=== PATIENT | female | born 1985 | race Caucasian/White ===

== ENCOUNTER 2021-12-09 13:40 | Emergency (ER) | payer OTHER, SELFPAY ==
[2021-12-09 13:45] VITALS: BP 150/105; PULSE 108; RESP 16; TEMP 36.8; O2SAT 96; BMI 31.3
--- NOTE | 2021-12-09 13:56 | W.ED.FALL ---
HPI - Fall General: Chief Complaint: Fall Stated Complaint: left food injury Time Seen by Provider: 12/09/21 13:49 History of Present Illness: Patient is a 36-year-old female comes to the ED with left foot injury after fall. Patient says yesterday she was walking and rolled her left foot and ankle. She now has pain in left foot and ankle that she rates a 6 out of 10. Pain worsens with any weightbearing. Associated symptoms-after fall: Denies abdominal pain, chest pain, headache(s), hematuria or neck pain Review of Systems Const: Denies: fever(s), chills or fatigue Eyes: Denies: change in vision or eye discomfort ENMT: Denies: throat pain, odynophagia, nasal discharge or nasal congestion Card: Denies: chest pain, palpitations, edema, swelling of feet/ankles, dyspnea on exertion or orthopnea Resp: Denies: dyspnea, productive cough or non-productive cough GI: Denies: abdominal pain, nausea, vomiting, diarrhea, constipation or hematochezia : Denies: flank pain, dysuria or hematuria Musc: Reports: extremity pain (left foot and left ankle), extremity swelling (left foot and ankle) and limited range of motion (Left ankle); Denies: neck pain or back pain Skin/Breast: Denies: rash or new lesions Neuro: Denies: headache(s), numbness in extremities or weakness in extremities PFS ED PFSH: Medical History No pertinent family history Surgical History No pertinent past surgical history Female Reproductive History: Date of last menstrual period: 12/09/21 Physical Exam Const: COMMON NORMALS: patient oriented x3 and alert GENERAL APPEARANCE: cooperative HENMT: COMMON NORMALS: normocephalic HEAD & SCALP: normocephalic MOUTH: Normal oral and palatal mucosa present THROAT: posterior oropharynx normal and uvula midline Neck/C-Spine: COMMON NORMALS: supple GENERAL: Yes normal visual inspection Resp: COMMON NORMALS: normal respiratory effort, No retractions, No use of accessory muscles and clear to auscultation bilaterally AUSCULTATION: clear to auscultation bilaterally Cardio: COMMON NORMALS: regular rate, regular rhythm, S1 normal heart sound present, S2 normal heart sound present, No gallops present (Cardio), No clicks present (Cardio), No murmurs present (Cardio) and Peripheral pulses 2+ throughout RATE: regular rate RHYTHM: regular rhythm HEART SOUNDS: S1 normal heart sound present and S2 normal heart sound present PERIPHERAL PULSES: Peripheral pulses 2+ throughout GI: COMMON NORMALS: Normal to inspection, nondistended, normoactive bowel sounds present, Soft to palpation, non-tender and no masses PALPATION: Yes Soft to palpation : COMMON NORMALS: Yes no CVA tenderness BLADDER/KIDNEY EXAM: Yes no CVA tenderness Back/Pelvis: COMMON NORMALS: no CVA tenderness Extremity: NARRATIVE EXTREMITY EXAM: Left ankle?no visible deformity noted. Swelling around lateral malleolus. Tenderness over anterior aspect of lateral malleolus. Neurovascular intact. Range of motion limited due to pain. LEFT LOWER EXTREMITY: Yes foot & digits Left foot and digits: Yes inspection (No visible deformity and mild swelling noted), Yes palpation (Tenderness over midfoot and lateral midfoot region), Yes ROM (Full) and Yes neurovascular exam (Intact) Neuro: COMMON NORMALS: patient oriented x3 and moves all extremities SENSORIUM/ORIENTATION: Yes alert Skin: GENERAL SKIN EXAM: dry skin Course Vital Signs: Vital signs: Vital Signs Temperature 98.2 F 12/09/21 13:45 Pulse Rate 94 12/09/21 15:49 Respiratory Rate 16 12/09/21 15:49 Blood Pressure 150/105 12/09/21 13:45 Pulse Oximetry 97 12/09/21 15:49 MDM - Fall Medical Decision Making Patient is a 36-year-old female comes to the ED with left foot injury after fall. Patient says yesterday she was walking and rolled her left foot and ankle. vitals stable. Left ankle?no visible deformity noted. Swelling around lateral malleolus. Tenderness over anterior aspect of lateral malleolus. Neurovascular intact. Range of motion limited due to pain. X-ray of left foot and left ankle no acute fracture or findings. Patient was diagnosed with a foot and ankle sprain and was discharged home with some crutches. She was told to follow-up with her PCP in the next week for reevaluation. She was instructed to rest ice and elevate left ankle throughout the day. Return to ED precautions given. Patient understood and agreed with plan. Lab Data Radiology Impressions Ankle X-Ray 12/09/21 14:15 IMPRESSION: 1. Mild soft tissue swelling-no acute fracture. Foot X-Ray 12/09/21 14:15 IMPRESSION: Negative left foot. Discharge Plan Discharge Patient Disposition: Home Clinical Impression: Left ankle sprain Qualifiers: Encounter type: initial encounter Involved ligament of ankle: anterior talofibular ligament Qualified Code(s): S93.492A - Sprain of other ligament of left ankle, initial encounter Foot sprain Qualifiers: Encounter type: initial encounter Laterality: left Qualified Code(s): S93.602A - Unspecified sprain of left foot, initial encounter Condition: Stable Discharge Orders: Discharge ED (Routine); Ordered 12/09/21 Ordered By: Elias Harrington Discharge Diet: Regular Discharge Activity: Increase activity as tolerated and Use walker/crutches as instructed Patient Instructions: Ankle Sprain (ED), Foot Sprain (ED) Activity Restrictions/Additional Instructions: Follow-up with medical provider as directed in the next 5 to 7 days reevaluation. Use crutches and limit weightbearing on left foot for the next 2 to 3 days then advance activity and weightbearing as tolerated. Rest, ice and elevate left foot. Take [id number] Tylenol or ibuprofen for pain. Return to the ER or your medical provider if condition worsens. Please read and understand discharge instructions. Thank you for choosing [facility] for your healthcare needs today. Please realize this is an emergency room and that we are providing you with a medical screening exam and this may not be complete and all inclusive of all the testing and or work up that you may need to determine your ailment or severity of your illness. It is very important that you follow up as instructed or that you return to the Emergency Department should you have concerns or if your condition changes or worsens in any way. Coding Level of Care Code ED Diver Assistant for Chema Fwpricilla Exam Comprehensive
--- NOTE | 2021-12-09 14:15 | XR_ITS ---
WS: [id number] Exam: XR foot LT min 3V* [id number] Date/Time of Exam: 12/09/2021 2:18 PM Reason For Exam: rolled foot injury Findings: The foot was examined in multiple views and reveals no fractures or displacements of bone. No bony a nomalies are noted. The bony elements are in adequate alignment. The joint spaces are smooth and eq uidistant. XR/XR foot LT min 3V* [id number] IMPRESSION: Negative left foot.
--- NOTE | 2021-12-09 14:15 | XR_ITS ---
WS: [id number] Exam: XR ankle LT min 3V* [id number] Date/Time of Exam: 12/09/2021 2:18 PM Reason For Exam: rolled ankle injury No fracture or dislocation. The ankle mortise is intact. Mild soft tissue edema about the ankle. XR/XR ankle LT min 3V* [id number] IMPRESSION: 1. Mild soft tissue swelling-no acute fracture.
[2021-12-09] MEDS: HYDROcodone-acetaminophen 7.5-325 mg Tablet 1 TAB PO (14:39)
[2021-12-09 15:49] VITALS: PULSE 94; RESP 16; O2SAT 97
== END 2021-12-09 15:50 | disposition home or self-care (01) ==
PROVIDERS: Emergency Provider Physician Assistant
DX: S93.492A Sprain of other ligament of left ankle, initial encounter (principal); S93.602A Unspecified sprain of left foot, initial encounter; X50.1XXA Overexertion from prolonged static or awkward postures, initial encounter
CPT/HCPCS: 73610; 73630; 99283; E0114

== ENCOUNTER 2022-05-28 09:38 | Emergency (ER) | payer OTHER, SELFPAY ==
[2022-05-28 09:49] VITALS: BP 172/108; PULSE 113; RESP 14; TEMP 36.8; O2SAT 100; BMI 34.4
--- NOTE | 2022-05-28 09:53 | ECG_ITS ---
[facility] Test Date: 2022-05-28 Pat Name: Lnida Ferris Department: Room: Gender: Female Billet Inspector: : 1985 Requested By: Hermilo Slaughter Order Number: [id number] Umer MD: Chaim Watts M.D. Measurements Intervals Rice Rate: 106 P: 40 NM: 124 QRS: 42 QRSD: 93 T: 34 QT: 342 QTc: 454 Interpretive Statements SINUS TACHYCARDIA No previous ECG available for comparison Electronically Signed On 05-28-2022 10:14:52 FLOOR COVERING CONTRACTOR by Chaim Watts M.D. [id number]
--- NOTE | 2022-05-28 10:01 | W.ED.GENADLT ---
HPI - General Adult General: Chief complaint: General Medical Stated complaint: high BP Time Seen by Provider: 05/28/22 09:52 Source: patient Mode of arrival: ambulatory History of Present Illness: 28-year-old female presents emergency room complaining of not feeling well. She was lightheaded and dizzy today she felt like she was going to pass out checked her blood pressure at home it was markedly elevated. She had been in the shower initially she was previously on antihypertensives but moved to the [place] area and has not reestablished with a doctor her medications ran out. She not having any chest pain. Onset (ago): hour(s) Location: head Severity: mild Relieving factors: none Exacerbating factors: none Associated symptoms: Reports headache(s); Deny chest pain, confusion, cough, diaphoresis, decreased appetite, dyspnea, fevers/chills, malaise, nausea, rash, palpitations, seizures, short of breath, syncope, vomiting or weakness Treatments prior to arrival: none Review of Systems Const: Denies: fever(s), chills, fatigue, malaise or diaphoresis ENMT: Denies: throat pain, ear or mastoid pain, nasal discharge or nasal congestion Card: Denies: chest pain, palpitations or syncope Resp: Denies: dyspnea GI: Denies: abdominal pain, nausea or vomiting : Denies: flank pain, difficulty voiding, dysuria, urinary frequency or urinary urgency Skin/Breast: Denies: rash Neuro: Reports: headache(s); Denies: numbness in extremities, weakness in extremities, sensory changes or confusion [facility] ED PFSH: Medical History (Updated 05/28/22 @ 11:22 by Hermilo Izquierdo DO) Hypertension No pertinent family history Surgical History No pertinent past surgical history Social History (Updated 05/28/22 @ 10:06 by Hermilo Izquierdo DO) Smoking and tobacco status: current every day smoker Female Reproductive History: Date of last menstrual period: 12/09/21 Physical Exam Const: COMMON NORMALS: no acute distress GENERAL APPEARANCE: cooperative and comfortable ORIENTATION/CONSCIOUSNESS: Yes awake, Yes oriented to person, Yes oriented to place and Yes oriented to time HENMT: COMMON NORMALS: normocephalic, atraumatic and hearing grossly normal bilaterally HEAD & SCALP: normocephalic and atraumatic Neck/C-Spine: COMMON NORMALS: no lymphadenopathy, supple and no JVD Resp: COMMON NORMALS: normal respiratory effort, No retractions, No use of accessory muscles and clear to auscultation bilaterally AUSCULTATION: clear to auscultation bilaterally Cardio: COMMON NORMALS: no JVD, regular rate, regular rhythm and No murmurs present (Cardio) RATE: regular rate RHYTHM: regular rhythm GI: COMMON NORMALS: Soft to palpation and No hepatosplenomegaly present AUSCULTATION: Yes normoactive bowel sounds PALPATION: Yes Soft to palpation, No Tenderness to palpation present (GI), No Guarding due to palpation present (GI) and Yes No hepatosplenomegaly present Extremity: COMMON NORMALS: normal to inspection, capillary refill normal, no clubbing, cyanosis or edema, no calf tenderness and no pedal edema Neuro: SENSORIUM/ORIENTATION: Yes oriented to person, Yes oriented to place and Yes oriented to time Skin: COMMON NORMALS: no rashes or lesions noted GENERAL SKIN EXAM: no rashes or lesions noted Course Vital Signs: Vital signs: Vital Signs Temperature 98.3 F 05/28/22 09:49 Pulse Rate 102 H 05/28/22 10:28 Respiratory Rate 14 05/28/22 09:49 Blood Pressure 146/104 05/28/22 11:39 Pulse Oximetry 99 05/28/22 10:28 Oxygen Delivery Me thod 05/28/22 10:28 MDM - General Adult Medical Decision Making Blood pressure improved with medications given. Will discharge home with Toprol-XL 25 p.o. daily and amlodipine 5 p.o. daily. Medical Records I reviewed the patient's medical records. Lab Data I reviewed the patient's lab results. 05/28/22 10:20 05/28/22 10:20 Laboratory Results WBC 9.7 10^3/uL (4.0-10.0) 05/28/22 10:20 RBC 5.36 10^6/uL (4.1-5.3) H 05/28/22 10:20 Hgb 15.8 g/dL (11.5-15.3) H 05/28/22 10:20 Hct 48.6 % (37.0-47.0) H 05/28/22 10:20 MCV 90.7 fl (81-99) 05/28/22 10:20 MCH 29.5 pg (28.0-34.0) 05/28/22 10:20 MCHC 32.5 g/dL (30.0-36.0) 05/28/22 10:20 RDW 13.6 % (12.1-15.1) 05/28/22 10:20 Plt Count 371 10^3/cmm (130-400) 05/28/22 10:20 MPV 9.7 fL (7.4-10.4) 05/28/22 10:20 Neut % (Auto) 61.6 % 05/28/22 10:20 Lymph % (Auto) 30.2 % 05/28/22 10:20 Ralls % (Auto) 6.6 % 05/28/22 10:20 Eos % (Auto) 0.8 % 05/28/22 10:20 Baso % (Auto) 0.5 % 05/28/22 10:20 Neut # (Auto) 6.00 10^3/uL (1.8-7.7) 05/28/22 10:20 Lymph # (Auto) 2.9 10^3/uL (0.8-4.8) 05/28/22 10:20 Ralls # (Auto) 0.6 10^3/uL (0.2-0.9) 05/28/22 10:20 Eos # (Auto) 0.1 10^3/uL (0.0-0.8) 05/28/22 10:20 Baso # (Auto) 0.1 10^3/uL (0.0-0.1) 05/28/22 10:20 Nucleated RBC % (auto) 0 % 05/28/22 10:20 Nucleated RBCs # 0.0 /100WBC 05/28/22 10:20 Sodium 137 mmol/L (136-145) 05/28/22 10:20 Potassium 3.6 mmol/L (3.5-5.1) 05/28/22 10:20 Chloride 101 mmol/L (98-107) 05/28/22 10:20 Carbon Dioxide 25 mmol/L (22-29) 05/28/22 10:20 Anion Gap 14.6 (5-19) 05/28/22 10:20 BUN 9 mg/dL (6-20) 05/28/22 10:20 Creatinine 0.6 mg/dL (0.5-0.9) 05/28/22 10:20 GFR Calculation 111.9 mL/min (90-130) 05/28/22 10:20 Glucose 82 mg/dL (65-115) 05/28/22 10:20 Calculated Osmolality 282 mOsm/kg (285-295) L 05/28/22 10:20 Calcium 9.4 mg/dL (8.5-10.5) 05/28/22 10:20 Discharge Plan Discharge Patient Disposition: Home Clinical Impression: Hypertension Condition: Stable Prescriptions: New Toprol XL 25 mg tablet extended release 24 hr 25 mg PO DAILY Qty: 30 0RF amlodipine 5 mg tablet 5 mg PO DAILY Qty: 30 0RF Discharge Orders: Discharge ED (Routine); Ordered 05/28/22 Ordered By: Hermilo Izquierdo Discharge Diet: Usual diet Discharge Activity: Increase activity as tolerated Patient Instructions: Opioid Safety, Pain Management Activity Restrictions/Additional Instructions: You were seen today for elevated blood pressure. Improved with medications given. Recommend that you start on Toprol-XL 25 mg daily amlodipine 5 mg daily you given doses of those medications in the emergency room. You should see a physician to reevaluate blood pressure within the next 7 to 10 days further medication adjustments may be necessary. Coding Level of Care Code ED Faculty Research Assistant for Chema Fwd Exam Comprehensive
[2022-05-28] MEDS: metoprolol succinate ER (24 HR) 25 mg Tablet PO (10:20)
[2022-05-28] MEDS: amlodipine 5 mg Tablet PO (10:20)
[2022-05-28] MEDS: labetalol 5 mg/mL SDV 20mL 10 MG IVP (10:22)
[2022-05-28 10:28] VITALS: BP 171/120; PULSE 102; O2SAT 99
[2022-05-28 10:30] LABS: Basophils # 0.1 10^3/uL (0.0-0.1); Basophils % 0.5 %; Eosinophils # 0.1 10^3/uL (0.0-0.8); Eosinophils % 0.8 %; Hematocrit 48.6 % (37.0-47.0); Hemoglobin 15.8 g/dL (11.5-15.3); Lymphocytes # 2.9 10^3/uL (0.8-4.8); Lymphocytes % 30.2 %; Mean Corpuscular HGB Conc 32.5 g/dL (30.0-36.0); Mean Corpuscular Hemoglobin 29.5 pg (28.0-34.0); Mean Corpuscular Volume 90.7 fl (81-99); Mean Platelet Volume 9.7 fL (7.4-10.4); Monocytes # 0.6 10^3/uL (0.2-0.9); Monocytes % 6.6 %; Neutrophils % 61.6 %; Nucleated Red Blood Cells % 0 %; Platelet Count 371 10^3/cmm (130-400); Red Blood Count 5.36 10^6/uL (4.1-5.3); Red Cell Distribution Width 13.6 % (12.1-15.1); White Blood Count 9.7 10^3/uL (4.0-10.0)
[2022-05-28 10:45] LABS: Anion Gap 14.6 (5-19); Blood Urea Nitrogen 9 mg/dL (6-20); Calcium 9.4 mg/dL (8.5-10.5); Carbon Dioxide 25 mmol/L (22-29); Chloride 101 mmol/L (98-107); Glomerular Filtration Rate 111.9 mL/min (90-130); Glucose 82 mg/dL (65-115); Osmolality Calculated 282 mOsm/kg (285-295); Potassium 3.6 mmol/L (3.5-5.1); Sodium 137 mmol/L (136-145)
[2022-05-28 11:32] VITALS: BP 148/104
[2022-05-28 11:39] VITALS: BP 146/104
--- NOTE | 2022-06-01 10:51 | DCPLANNER ---
Addendum entered by Joy Arellano 06/11/22 10:21: Patient had a follow up appointment scheduled at [facility] - patient did not attend appointment. Original Note: Patient called medical case worker asking about getting established with a primary care physician. jail manager called the [facility] clinic, gave clinic patients information. A follow up appointment was scheduled for Wednesday, June 08, 2022 at 10:00 with WEB DEVELOPERChristine at the clinic. jail manager called patient and gave patient the appointment information.
== END 2022-05-28 11:40 | disposition home or self-care (01) ==
PROVIDERS: Emergency Provider Family Medicine
DX: I10 Essential (primary) hypertension (principal); F17.210 Nicotine dependence, cigarettes, uncomplicated
CPT/HCPCS: 80048; 85025; 93005; 96374; 99284; J3490

== ENCOUNTER → 2022-07-29 15:39 | Outpatient (BNVA) | payer OTHER, SELFPAY | PROVIDERS: PCP Nurse Practitioner Family; Visit Provider Nurse Practitioner Family | DX: I10 Essential (primary) hypertension (principal) | CPT/HCPCS: 80053; 80061; 83735; 84443; 85025 ==

== ENCOUNTER → 2022-09-21 14:48 | Outpatient (BNVA) | payer OTHER, SELFPAY | PROVIDERS: PCP Nurse Practitioner Family; Visit Provider Nurse Practitioner Family | DX: R39.9 Unspecified symptoms and signs involving the genitourinary system (principal); R31.9 Hematuria, unspecified; N20.0 Calculus of kidney | CPT/HCPCS: 74018; 81000; 81003; 87077; 87086; 87184 ==

== ENCOUNTER 2022-11-25 10:14 | Emergency (ER) | payer SELFPAY ==
[2022-11-25 10:20] VITALS: BP 164/106; PULSE 90; RESP 17; TEMP 36.6; O2SAT 100; BMI 33.6
--- NOTE | 2022-11-25 10:53 | CT_ITS ---
WS: [id number] CTA HEAD AND NECK TECHNIQUE: Contrast enhanced CTA of the head and neck with coronal and sagittal reformatted images an d maximum intensity projection (MIP) images. NASCET criteria utilized. CLINICAL INFORMATION: L neck pain, dizziness COMPARISON: None. DLP: 979.[address] scans at [facility] use at least one of these dose optimization techniques: automated e xposure control; mA and/or kV adjustment per patient size (includes targeted exams where dose is matc hed to clinical indication); or iterative reconstruction. FINDINGS: No evidence of intracranial hemorrhage or mass effect. Ventricular system and basal cistern s are patent. Paranasal sinuses and mastoid air cells well aerated. Normal posterior nasopharynx. No hydrocephalus. Lung apices are well aerated. RIGHT: RIGHT common carotid artery is patent. No significant RIGHT ICA stenosis. ICA is patent to the skull base. LEFT: LEFT common carotid artery is patent. No significant LEFT ICA stenosis. LEFT ICA is patent to t he skull base. RIGHT vertebral artery is patent. LEFT vertebral artery is patent to the basilar junction. No evidenc e of vertebral artery dissection. Codominant and patent vertebral arteries bilaterally. Basilar artery is patent. 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 Normal vascularity to the PHOTOENGRAVING SKETCH MAKER territory bilater ally. Both ICAs are patent at the skull base. Normal vascularity to the DAE and MCA territories bilaterally . No evidence of proximal flow limiting stenosis or aneurysm. Normal dural venous sinuses. Parotid glands appear normal. Normal submandibular glands. Airway appears patent. Mild spondylitic ch anges cervical spine. Straightening with slight reversal normal cervical lordosis. Mild disc osteophy te complexes at C4-C5 and C5-C6. Mild LEFT bony foraminal narrowing LEFT C4-C5 and LEFT C5-C6. Mild c entral canal stenosis C4-C5 and C5-C6 due to disc osteophyte complexes. CT/CT angio headneck* [id number] IMPRESSION: 1. No evidence of intracranial hemorrhage or mass effect. 2. No significant ICA stenosis. 3. Codominant and patent vertebral arteries bilaterally. No evidence of verteb ral artery dissection. 4. Normal intracranial CTA. No flow-limiting stenosis or aneurysm. 5. Mild central canal stenosis and mild LEFT bony foraminal narrowing C4-C5 an d C5-C6 due to disc osteophyte complexes.
--- NOTE | 2022-11-25 10:54 | W.ED.DIZZY ---
Documented by User: CONY Becker 11/25/22 13:39 HPI - Dizziness General: Chief Complaint: Dizziness Stated Complaint: dizzy sent by PCP Time Seen by Provider: 11/25/22 10:20 Source: patient Mode of arrival: ambulatory Limitations: no limitations History of Present Illness: HPI Narrative: Patient is a 37-year-old female who presents to ED today with a complaint of dizziness and left-sided neck pressure. Patient tells me dizziness for started approximately 2 to 3 days ago. She states she has had a few episodes of dizziness that has seemed to resolve by laying down/resting. 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 She states she was admitted at [place] in [facility] for a few days and placed on aspirin. She states she has not had any further issues until 2 to 3 days ago. Patient does not complain of a headache. No tinnitus/pulsatile tinnitus, hearing loss, ear pain. She has not noticed any facial/neurologic deficits. MD elicited complaint: dizziness Pertinent past history: other (reports previous cranial artery dissection/TIA) Onset (ago): day(s) Timing: intermittent Severity: similar to previous episodes Description: off-balance and difficulty walking History of similar symptoms: Yes Relieving factors: remaining still and lying down Associated symptoms: Reports no associated symptoms and other (neck pain); Denies change in hearing, chills, ear discharge, headache(s), malaise or tinnitus Associated neuro symptoms: Reports no associated symptoms; Deny confusion or numbness in extremities Stroke scale total: 0 Review of Systems Const: Denies: fever(s), chills, body aches, fatigue or malaise Eyes: Denies: change in vision, blurry vision, photophobia, floaters or seeing flashes ENMT: Denies: ear or mastoid pain, ear discharge, change in hearing, tinnitus or disequilibrium Musc: Reports: neck pain Skin/Breast: Denies: rash Neuro: Reports: dizziness; Denies: headache(s), numbness in extremities, weakness in extremities, sensory changes, lack of coordination, difficulty walking, frequent falls, vertigo, confusion, behavioral changes, Slurred speech present, difficulty communicating thoughts or seizure-like activity [facility] PFSH: Medical History Anxiety HPV (human papilloma virus) infection Hypertension No pertinent family history Surgical History Hx of cholecystectomy [place] teeth removed Family History Mother Cancer Hypertension Diabetes Grandmother Cancer breast Social History Smoking and tobacco status: current every day smoker cigarettes Packs smoked per day: 1 Years cigarettes smoked: 24 Alcohol intake: current Alcohol intake frequency: few times a week Alcohol type: hard liquor Substance/Drug Use: never Household members: spouse Marital status: service: No Current occupational status: employed Current occupation: [email or web address] Pets and animals: Yes Pets & animals: dog(s) Current gender identity: Female Special kristian needs: No Physical Exam Const: COMMON NORMALS: no acute distress, average body habitus, patient oriented x3, no limitations, alert and well nourished GENERAL APPEARANCE: cooperative ORIENTATION/CONSCIOUSNESS: Yes awake, Yes oriented to person, Yes oriented to place and Yes oriented to time HENMT: COMMON NORMALS: normocephalic, atraumatic, hearing grossly normal bilaterally, external ears normal, EAC's normal and TM's normal bilaterally HEAD & SCALP: normocephalic and atraumatic FACE & SINUS: normal facial exam EXTERNAL EAR: Yes external ears normal EXTERNAL AUDITORY CANAL: EAC's normal TYMPANIC MEMBRANE: TM's normal bilaterally Eye: COMMON NORMALS: Equal, round and reactive pupils present and EOMs intact bilaterally GENERAL EYE: appearance normal, both eyes and all related structures and normal light reflex PUPIL: Yes Equal, round and reactive pupils present DIRECT OPHTHALMOSCOPY: Yes normal light reflex OTHER: no nystagmus present Neck/C-Spine: COMMON NORMALS: full ROM, no lymphadenopathy, supple, no meningeal signs and No carotid bruits Chest: COMMONS NORMALS: normal inspection of the chest Resp: COMMON NORMALS: normal respiratory effort and clear to auscultation bilaterally AUSCULTATION: clear to auscultation bilaterally Cardio: COMMON NORMALS: regular rate and regular rhythm RATE: regular rate RHYTHM: regular rhythm GI: COMMON NORMALS: Normal to inspection, nondistended, normoactive bowel sounds present, Soft to palpation, non-tender, No hepatosplenomegaly present and no masses PALPATION: Yes Soft to palpation and Yes No hepatosplenomegaly present Extremity: COMMON NORMALS: normal to inspection GENERAL: Yes normal exam except as noted Neuro: SURINDER COMA SCALE: document GCS findings Surinder coma scale eye opening: Spontaneous Surinder coma scale verbal response: Orientated [place] coma scale motor response: Obey commands Surinder coma scale total score: 15 COMMON NORMALS: patient oriented x3, CN's II-XII intact bilaterally, moves all extremities, no focal motor deficits and no sensory deficits noted SENSORIUM/ORIENTATION: Yes alert, Yes oriented to person, Yes oriented to place and Yes oriented to time MENINGEAL SIGNS: Yes no meningeal signs CRANIAL NERVES: Yes HiNTS (no nystagmus appreciated) Head impulse: normal Skew: normal (absent ) SPEECH: speech normal MOTOR EXAM: 5/5 motor strength present throughout Skin: COMMON NORMALS: no rashes or lesions noted GENERAL SKIN EXAM: no rashes or lesions noted Course Vital Signs: Vital signs: Vital Signs Temperature 98 F 11/25/22 10:20 Pulse Rate 78 11/25/22 11:43 Respiratory Rate 14 11/25/22 13:13 Blood Pressure 138/94 11/25/22 13:13 Pulse Oximetry 98 11/25/22 11:43 Oxygen Delivery Me thod Room Air 11/25/22 11:43 MDM - Dizziness Medical Decision Making Patient here with intermittent dizziness over the past 2 to 3 days. In between episodes of dizziness she is asymptomatic. Based on her history of previous cerebral/cranial dissection and TIA decision was made to obtain CTA imaging of her head and neck. This was essentially normal apart from some incidental findings related to her cervical spine. Patient was given meclizine here and feels like her dizziness has improved. She has a normal neurologic examination as documented. Patient is stable for discharge. Return to ED precautions given. Lab Data 11/25/22 11:00 11/25/22 11:00 Radiology Impressions Head/Neck CTA 11/25/22 10:53 IMPRESSION: 1. No evidence of intracranial hemorrhage or mass effect. 2. No significant ICA stenosis. 3. Codominant and patent vertebral arteries bilaterally. No evidence of vertebral artery dissection. 4. Normal intracranial CTA. No flow-limiting stenosis or aneurysm. 5. Mild central canal stenosis and mild LEFT bony foraminal narrowing C4-C5 and C5-C6 due to disc osteophyte complexes. Laboratory Results WBC 10.5 10^3/uL (4.0-10.0) H 11/25/22 11:00 RBC 5.17 10^6/uL (4.1-5.3) 11/25/22 11:00 Hgb 15.4 g/dL (11.5-15.3) H 11/25/22 11:00 Hct 46.8 % (37.0-47.0) 11/25/22 11:00 MCV 90.5 fl (81-99) 11/25/22 11:00 MCH 29.8 pg (28.0-34.0) 11/25/22 11:00 MCHC 32.9 g/dL (30.0-36.0) 11/25/22 11:00 RDW 14.0 % (12.1-15.1) 11/25/22 11:00 Plt Count 343 10^3/cmm (130-400) 11/25/22 11:00 MPV 9.4 fL (7.4-10.4) 11/25/22 11:00 Neut % (Auto) 63.7 % 11/25/22 11:00 Lymph % (Auto) 28.8 % 11/25/22 11:00 [place] % (Auto) 5.6 % 11/25/22 11:00 Eos % (Auto) 1.2 % 11/25/22 11:00 Baso % (Auto) 0.5 % 11/25/22 11:00 Neut # (Auto) 6.70 10^3/uL (1.8-7.7) 11/25/22 11:00 Lymph # (Auto) 3.0 10^3/uL (0.8-4.8) 11/25/22 11:00 [place] # (Auto) 0.6 10^3/uL (0.2-0.9) 11/25/22 11:00 Eos # (Auto) 0.1 10^3/uL (0.0-0.8) 11/25/22 11:00 Baso # (Auto) 0.1 10^3/uL (0.0-0.1) 11/25/22 11:00 Nucleated RBC % (auto) 0 % 11/25/22 11:00 Nucleated RBCs # 0.0 /100WBC 11/25/22 11:00 Sodium 135 mmol/L (136-145) L 11/25/22 11:00 Potassium 3.6 mmol/L (3.5-5.1) 11/25/22 11:00 Chloride 100 mmol/L (98-107) 11/25/22 11:00 Carbon Dioxide 24 mmol/L (22-29) 11/25/22 11:00 Anion Gap 14.6 (5-19) 11/25/22 11:00 BUN 13 mg/dL (6-20) 11/25/22 11:00 Creatinine 0.6 mg/dL (0.5-0.9) 11/25/22 11:00 GFR Calculation 111.3 mL/min (90-130) 11/25/22 11:00 Glucose 96 mg/dL (65-115) 11/25/22 11:00 Calculated Osmolality 280 mOsm/kg (285-295) L 11/25/22 11:00 Calcium 8.4 mg/dL (8.5-10.5) L 11/25/22 11:00 Total Bilirubin 0.2 mg/dL (0.15-1.2) 11/25/22 11:00 AST 23 U/L (0-32) 11/25/22 11:00 ALT 26 U/L (0-33) 11/25/22 11:00 Alkaline Phosphatase 82 U/L (35-105) 11/25/22 11:00 Total Protein 7.1 g/dL (6.6-8.7) 11/25/22 11:00 Albumin 4.1 g/dL (3.5-5.2) 11/25/22 11:00 Globulin 3.0 g/dL (1.3-4.6) 11/25/22 11:00 HCG, Qual Negative (Negative) 11/25/22 11:00 Discharge Plan Discharge Patient Disposition: Home Clinical Impression: Dizziness Condition: Stable Prescriptions: No Action metoprolol succinate 100 mg tablet extended release 24 hr 150 mg PO DAILY Discharge Orders: Discharge ED (Routine); Ordered 11/25/22 Ordered By: Sharron Thornton Referrals: Nemo Chandler FNP [Primary Care Provider] - Patient Instructions: Dizziness Coding Level of Care Code ED Logistics Support for Chg Fwd Documented by User: Hermilo Izquierdo DO 11/25/22 14:42 HPI - Dizziness General: Chief Complaint: Dizziness Stated Complaint: dizzy sent by PCP Time Seen by Provider: 11/25/22 10:20 PFSH ED PFSH: Medical History Anxiety HPV (human papilloma virus) infection Hypertension No pertinent family history Surgical History Hx of cholecystectomy [place] teeth removed Family History Mother Cancer Hypertension Diabetes Grandmother Cancer breast Social History Smoking and tobacco status: current every day smoker cigarettes Packs smoked per day: 1 Years cigarettes smoked: 24 Alcohol intake: current Alcohol intake frequency: few times a week Alcohol type: hard liquor Substance/Drug Use: never Household members: spouse Marital status: service: No Current occupational status: employed Current occupation: [email or web address] Pets and animals: Yes Pets & animals: dog(s) Current gender identity: Female Special kristian needs: No Physical Exam Neuro: SURINDER COMA SCALE: document GCS findings [place] coma scale total score: 15 Course Vital Signs: Vital signs: Vital Signs Temperature 98 F 11/25/22 10:20 Pulse Rate 78 11/25/22 11:43 Respiratory Rate 14 11/25/22 13:13 Blood Pressure 138/94 11/25/22 13:13 Pulse Oximetry 98 11/25/22 11:43 Oxygen Delivery Me thod Room Air 11/25/22 11:43 MDM - Dizziness Medical Decision Making Patient here with intermittent dizziness over the past 2 to 3 days. In between episodes of dizziness she is asymptomatic. Based on her history of previous cerebral/cranial dissection and TIA decision was made to obtain CTA imaging of her head and neck. This was essentially normal apart from some incidental findings related to her cervical spine. Patient was given meclizine here and feels like her dizziness has improved. She has a normal neurologic examination as documented. Patient is stable for discharge. Return to ED precautions given. Chart reviewed and patient discussed with midlevel. Agree with assessment and plan. Lab Data 11/25/22 11:00 11/25/22 11:00 Radiology Impressions Head/Neck CTA 11/25/22 10:53 IMPRESSION: 1. No evidence of intracranial hemorrhage or mass effect. 2. No significant ICA stenosis. 3. Codominant and patent vertebral arteries bilaterally. No evidence of vertebral artery dissection. 4. Normal intracranial CTA. No flow-limiting stenosis or aneurysm. 5. Mild central canal stenosis and mild LEFT bony foraminal narrowing C4-C5 and C5-C6 due to disc osteophyte complexes. Laboratory Results WBC 10.5 10^3/uL (4.0-10.0) H 11/25/22 11:00 RBC 5.17 10^6/uL (4.1-5.3) 11/25/22 11:00 Hgb 15.4 g/dL (11.5-15.3) H 11/25/22 11:00 Hct 46.8 % (37.0-47.0) 11/25/22 11:00 MCV 90.5 fl (81-99) 11/25/22 11:00 MCH 29.8 pg (28.0-34.0) 11/25/22 11:00 MCHC 32.9 g/dL (30.0-36.0) 11/25/22 11:00 RDW 14.0 % (12.1-15.1) 11/25/22 11:00 Plt Count 343 10^3/cmm (130-400) 11/25/22 11:00 MPV 9.4 fL (7.4-10.4) 11/25/22 11:00 Neut % (Auto) 63.7 % 11/25/22 11:00 Lymph % (Auto) 28.8 % 11/25/22 11:00 [place] % (Auto) 5.6 % 11/25/22 11:00 Eos % (Auto) 1.2 % 11/25/22 11:00 Baso % (Auto) 0.5 % 11/25/22 11:00 Neut # (Auto) 6.70 10^3/uL (1.8-7.7) 11/25/22 11:00 Lymph # (Auto) 3.0 10^3/uL (0.8-4.8) 11/25/22 11:00 [place] # (Auto) 0.6 10^3/uL (0.2-0.9) 11/25/22 11:00 Eos # (Auto) 0.1 10^3/uL (0.0-0.8) 11/25/22 11:00 Baso # (Auto) 0.1 10^3/uL (0.0-0.1) 11/25/22 11:00 Nucleated RBC % (auto) 0 % 11/25/22 11:00 Nucleated RBCs # 0.0 /100WBC 11/25/22 11:00 Sodium 135 mmol/L (136-145) L 11/25/22 11:00 Potassium 3.6 mmol/L (3.5-5.1) 11/25/22 11:00 Chloride 100 mmol/L (98-107) 11/25/22 11:00 Carbon Dioxide 24 mmol/L (22-29) 11/25/22 11:00 Anion Gap 14.6 (5-19) 11/25/22 11:00 BUN 13 mg/dL (6-20) 11/25/22 11:00 Creatinine 0.6 mg/dL (0.5-0.9) 11/25/22 11:00 GFR Calculation 111.3 mL/min (90-130) 11/25/22 11:00 Glucose 96 mg/dL (65-115) 11/25/22 11:00 Calculated Osmolality 280 mOsm/kg (285-295) L 11/25/22 11:00 Calcium 8.4 mg/dL (8.5-10.5) L 11/25/22 11:00 Total Bilirubin 0.2 mg/dL (0.15-1.2) 11/25/22 11:00 AST 23 U/L (0-32) 11/25/22 11:00 ALT 26 U/L (0-33) 11/25/22 11:00 Alkaline Phosphatase 82 U/L (35-105) 11/25/22 11:00 Total Protein 7.1 g/dL (6.6-8.7) 11/25/22 11:00 Albumin 4.1 g/dL (3.5-5.2) 11/25/22 11:00 Globulin 3.0 g/dL (1.3-4.6) 11/25/22 11:00 HCG, Qual Negative (Negative) 11/25/22 11:00 Discharge Plan Discharge Patient Disposition: Home Clinical Impression: Dizziness Condition: Stable Prescriptions: No Action metoprolol succinate 100 mg tablet extended release 24 hr 150 mg PO DAILY Discharge Orders: Discharge ED (Routine); Ordered 11/25/22 Ordered By: Sharron Thornton Referrals: Nemo Chandler FNP [Primary Care Provider] - Patient Instructions: Dizziness Coding Level of Care Code ED Logistics Support for Chema Drew
[2022-11-25 11:27] LABS: Basophils # 0.1 10^3/uL (0.0-0.1); Basophils % 0.5 %; Eosinophils # 0.1 10^3/uL (0.0-0.8); Eosinophils % 1.2 %; Hematocrit 46.8 % (37.0-47.0); Hemoglobin 15.4 g/dL (11.5-15.3); Lymphocytes % 28.8 %; Mean Corpuscular HGB Conc 32.9 g/dL (30.0-36.0); Mean Corpuscular Hemoglobin 29.8 pg (28.0-34.0); Mean Corpuscular Volume 90.5 fl (81-99); Mean Platelet Volume 9.4 fL (7.4-10.4); Monocytes # 0.6 10^3/uL (0.2-0.9); Monocytes % 5.6 %; Neutrophils % 63.7 %; Nucleated Red Blood Cells % 0 %; Platelet Count 343 10^3/cmm (130-400); Red Blood Count 5.17 10^6/uL (4.1-5.3); White Blood Count 10.5 10^3/uL (4.0-10.0)
[2022-11-25] MEDS: iohexol 350 mg/mL 500 mL Btl (per mL) IV (11:32)
[2022-11-25 11:41] LABS: HCG, Serum Qual Negative (Negative)
[2022-11-25] MEDS: meclizine 25 mg tablet 50 MG PO (11:42)
[2022-11-25 11:43] VITALS: BP 149/92; PULSE 78; RESP 15; O2SAT 98
[2022-11-25 11:45] LABS: Alanine Aminotransferase 26 U/L (0-33); Albumin Level 4.1 g/dL (3.5-5.2); Alkaline Phosphatase 82 U/L (35-105); Anion Gap 14.6 (5-19); Aspartate Amino Transferase 23 U/L (0-32); Blood Urea Nitrogen 13 mg/dL (6-20); Calcium 8.4 mg/dL (8.5-10.5); Carbon Dioxide 24 mmol/L (22-29); Chloride 100 mmol/L (98-107); Creatinine Clr Calc Pharmacy 150.9704; Glomerular Filtration Rate 111.3 mL/min (90-130); Glucose 96 mg/dL (65-115); Osmolality Calculated 280 mOsm/kg (285-295); Potassium 3.6 mmol/L (3.5-5.1); Sodium 135 mmol/L (136-145); Total Bilirubin 0.2 mg/dL (0.15-1.2); Total Protein 7.1 g/dL (6.6-8.7)
[2022-11-25 13:13] VITALS: BP 138/94; RESP 14
== END 2022-11-25 13:14 | disposition home or self-care (01) ==
PROVIDERS: Emergency Provider Physician Assistant; PCP Nurse Practitioner Family
DX: R42 Dizziness and giddiness (principal); I10 Essential (primary) hypertension; F17.210 Nicotine dependence, cigarettes, uncomplicated
CPT/HCPCS: 70496; 70498; 80053; 84703; 85025; 99284; J8597; Q9967

== ENCOUNTER 2023-05-30 15:47 | Emergency (ER) | payer OTHER, SELFPAY ==
[2023-05-30 15:53] VITALS: BP 174/112; PULSE 95; RESP 16; TEMP 36.5; O2SAT 98; BMI 33.6
--- NOTE | 2023-05-30 16:11 | ED_ITS ---
HPI - General Adult General: Chief complaint: Abdominal Pain Stated complaint: bowel movement with worm Time Seen by Provider: 05/30/23 15:49 Source: patient Mode of arrival: ambulatory History of Present Illness: 37-year-old female noted as warm passing stool she collected 1 has back it does indeed look like a parasitic worm. She denies any hematochezia. Difficult to identify it is dried and flattened Relieving factors: none Exacerbating factors: none Review of Systems Const: Denies: fever(s) or chills GI: Denies: abdominal pain : Denies: dysuria, urinary frequency or urinary urgency PFSH ED PFSH: Medical History Anxiety HPV (human papilloma virus) infection Hypertension No pertinent family history Surgical History Hx of cholecystectomy [place] teeth removed Family History Mother Cancer Hypertension Diabetes Grandmother Cancer breast Social History Smoking and tobacco/nicotine status: current every day tobacco/nicotine user cigarettes Packs smoked per day: 1 Years cigarettes smoked: 24 Alcohol intake: current Alcohol intake frequency: few times a week Alcohol type: hard liquor Substance/Drug Use: never Household members: spouse Marital status: service: No Current occupational status: employed Current occupation: [employer] Pets and animals: Yes Pets & animals: dog(s) Current gender identity: Female Special kristian needs: No Physical Exam Const: COMMON NORMALS: no acute distress GENERAL APPEARANCE: cooperative and comfortable ORIENTATION/CONSCIOUSNESS: Yes awake HENMT: COMMON NORMALS: normocephalic, atraumatic and hearing grossly normal bilaterally HEAD & SCALP: normocephalic and atraumatic Resp: COMMON NORMALS: normal respiratory effort Course Vital Signs: Vital signs: Vital Signs Temperature 97.7 F 05/30/23 15:53 Pulse Rate 95 05/30/23 15:53 Respiratory Rate 16 05/30/23 15:53 Blood Pressure 174/112 05/30/23 15:53 Pulse Oximetry 98 05/30/23 15:53 Oxygen Delivery Me thod Room Air 05/30/23 15:53 MDM - General Adult Medical Decision Making Treat based on report and history and findings the patient presented. 5 days mebendazole follow-up with primary care patient bring stool Sample to her primary care doctor. Medical Records I reviewed the patient's medical records. Lab Data I reviewed the patient's lab results. No radiology studies performed this visit Discharge Plan Discharge Patient Disposition: Home Clinical Impression: Pinworms Condition: Stable Prescriptions: New mebendazole 100 mg tablet,chewable 100 mg PO DIRECTED 5 Days Qty: 2 0RF Rx Instructions: 1 dose today repeat 1 dose in 2 weeks mebendazole 100 mg tablet,chewable 100 mg PO BID 5 Days Qty: 10 0RF No Action amoxicillin-pot clavulanate 875-125 mg tablet 1 tab PO BID 10 Days Qty: 20 0RF metoprolol succinate 100 mg tablet extended release 24 hr 100 mg PO DAILY Qty: 90 1RF chlorhexidine gluconate [Peridex] 0.12 % mouthwash 15 ml buccal BID Qty: 473 0RF acetaminophen-codeine 300-30 mg tablet See Rx Instructions PO Q6H PRN (Reason: pain) Qty: 20 0RF Rx Instructions: 1-2 tablets orally every 6 hours PRN; Discharge Orders: Discharge ED (Routine); Ordered 05/30/23 Ordered By: Hermilo Izquierdo Referrals: Nemo Chandler FNP [Primary Care Provider] - Discharge Diet: Usual diet Patient Instructions: Pinworm Infection (ED), Opioid Safety, Pain Management Activity Restrictions/Additional Instructions: Thank you for choosing [facility] for your healthcare needs today. Please realize this is an emergency room and that we are providing you with a medical screening exam and this may not be complete and all inclusive of all the testing and or work up that you may need to determine your ailment or severity of your illness. It is very important that you follow up as instructed or that you return to the Emergency Department should you have concerns or if your co ndition changes or worsens in any way. You were seen today with complaint of worms in your stool. Stool cultures were ordered recommend a single dose of mebendazole today and repeat 1 dose in 2 week s Coding Level of Care Code ED Commercial Door Installer for Chema Drew
== END 2023-05-30 16:38 | disposition home or self-care (01) ==
PROVIDERS: Emergency Provider Family Medicine; PCP Nurse Practitioner Family
DX: B80 Enterobiasis (principal); I10 Essential (primary) hypertension; F17.210 Nicotine dependence, cigarettes, uncomplicated
CPT/HCPCS: 99283

== ENCOUNTER → 2023-05-31 11:46 | Outpatient (BNVA) | payer OTHER, SELFPAY | PROVIDERS: PCP Nurse Practitioner Family; Visit Provider Nurse Practitioner Family | DX: B80 Enterobiasis (principal) | CPT/HCPCS: 87177; 87209 ==